=== PATIENT | female | born 2000 ===

== ENCOUNTER 2023-03-11 07:25 | Inpatient (IN) | payer MEDICARE, OTHER ==
[~2023-03-11] VITALS: Ht 170.2 cm; Wt 95.1 kg
[2023-03-11] VITALS (11 sets, daily range): BP systolic 105–136; BP diastolic 59–84
[2023-03-11] MEDS ORDERED: PRENTAB9 PO (07:51)
[2023-03-11] MEDS ORDERED: HOME MED LIST COMPLETE! XX SCH (07:55)
[2023-03-11] MEDS ORDERED: CARBOPROST TROMETHAMINE 250 MCG/ML AMP IM PRN (08:00)
[2023-03-11] MEDS ORDERED: OXYTOCIN INJ 10UNITS/ML 1ML VIAL IV PRN (08:00)
[2023-03-11] MEDS ORDERED: TRANEXAMIC ACID INJection 1,000 MG in NS 100 ML IV PRN (08:00)
[2023-03-11] MEDS ORDERED: METHYLERGONOVINE MALEATE 0.2MG/ML 1ML VIAL IM PRN (08:00)
[2023-03-11] MEDS ORDERED: OXYTOCIN DRIP 30 UNITS in IV 1 EA IV PRN ×6 (08:00)
[2023-03-11] MEDS ORDERED: LIDOCAINE 1% MDV 20ML VIAL INFIL PRN (08:00)
[2023-03-11] MEDS ORDERED: OXYTOCIN INJ 10UNITS/ML 1ML VIAL IM PRN (08:00)
[2023-03-11] MEDS: LR 1,000 ML IV SCH ×2 (09:14→17:16)
[2023-03-11 09:23] LABS: HEMATOCRIT 35.1 % (36.0-47.0); HEMOGLOBIN 11.7 g/dl (12.0-15.5); MEAN CORPUSCULAR HEMOGLOBIN 31.2 pg (27.0-33.0); MEAN CORPUSCULAR HGB CONC 33.3 g/dl (32.0-36.5); MEAN CORPUSCULAR VOLUME 93.6 fl (80.0-96.0); PLATELET COUNT, AUTOMATED 169 10^3/uL (150-450); RED BLOOD COUNT 3.75 10^6/uL (4.00-5.40); WHITE BLOOD COUNT 5.4 10^3/uL (4.0-10.0)
[2023-03-11] MEDS ORDERED: miSOPROStol 25MCG 1/4 TABLET PO SCH (09:30)
[2023-03-11] MEDS: AMPICILLIN SOD 2 GM in D5W MINI-BAG PLUS 100 ML IV SCH ×3 (09:37→20:54)
[2023-03-11] MEDS: miSOPROStol 50MCG 1/2 TABLET PO SCH ×3 (13:19→20:54)
[2023-03-11 14:29] LABS: GC DNA AMPLIFICATION NEGATIVE (NEGATIVE)
[2023-03-12] MEDS: AMPICILLIN SOD 2 GM in D5W MINI-BAG PLUS 100 ML IV SCH (03:17)
[2023-03-12] MEDS ORDERED: PRENTAB9 PO (06:35)
== END 2023-03-12 06:45 | disposition home or self-care (01) | DRG 951 ==
LOC: M LDI 07:35
PROVIDERS: ADMIT Obstetrics & Gynecology Obstetrics; ATTEND Obstetrics & Gynecology Obstetrics
PROC: 3E0P7GC Introduction of Other Therapeutic Substance into Female Reproductive, Via Natural or Artificial Opening (ICD-10-PCS; principal; 2023-03-11)
DX: O48.0 Post-term pregnancy (principal); O99.820 Streptococcus B carrier state complicating pregnancy; Z3A.40 40 weeks gestation of pregnancy; O61.0 Failed medical induction of labor

== ENCOUNTER 2023-03-14 12:45 | Inpatient (IN) | payer OTHER ==
[~2023-03-14] VITALS: Ht 170.2 cm; Wt 96.0 kg
[2023-03-14] VITALS (10 sets, daily range): BP systolic 124–173; BP diastolic 58–101
[~2023-03-14 12:45] MED LIST: PRENTAB9 PO
[2023-03-14] MEDS ORDERED: OXYTOCIN INJ 10UNITS/ML 1ML VIAL IM PRN (13:45)
[2023-03-14] MEDS ORDERED: TRANEXAMIC ACID INJection 1,000 MG in NS 100 ML IV PRN (13:45)
[2023-03-14] MEDS ORDERED: LIDOCAINE 1% MDV 20ML VIAL INFIL PRN (13:45)
[2023-03-14] MEDS ORDERED: METHYLERGONOVINE MALEATE 0.2MG/ML 1ML VIAL IM PRN (13:45)
[2023-03-14] MEDS ORDERED: CARBOPROST TROMETHAMINE 250 MCG/ML AMP IM PRN (13:45)
[2023-03-14] MEDS ORDERED: OXYTOCIN DRIP 30 UNITS in IV 1 EA IV PRN ×6 (13:45)
[2023-03-14] MEDS ORDERED: OXYTOCIN INJ 10UNITS/ML 1ML VIAL IV PRN (13:45)
[2023-03-14] MEDS ORDERED: miSOPROStol 50MCG 1/2 TABLET PV ONE ×3 (13:45→21:50)
[2023-03-14 14:34] LABS: HEMOGLOBIN 12.1 g/dl (12.0-15.5); MEAN CORPUSCULAR HEMOGLOBIN 31.4 pg (27.0-33.0); MEAN CORPUSCULAR HGB CONC 33.6 g/dl (32.0-36.5); MEAN CORPUSCULAR VOLUME 93.5 fl (80.0-96.0); PLATELET COUNT, AUTOMATED 167 10^3/uL (150-450); RED BLOOD COUNT 3.85 10^6/uL (4.00-5.40); WHITE BLOOD COUNT 6.4 10^3/uL (4.0-10.0)
[2023-03-14] MEDS ORDERED: AMPICILLIN SOD 2 GM in D5W MINI-BAG PLUS 100 ML IV SCH (15:00)
[2023-03-14 21:31] LABS: ALBUMIN 2.8 G/DL (3.2-5.2); ALKALINE PHOSPHATASE 172 U/L (46-116); ALT/SGPT 14 U/L (7.0-40); AST/SGOT 19 U/L (<34); BILIRUBIN,TOTAL 0.3 MG/DL (0.3-1.2); BLOOD UREA NITROGEN 8 MG/DL (9-23); CALCIUM LEVEL 8.2 MG/DL (8.5-10.1); CARBON DIOXIDE LEVEL 21 MMOL/L (20-31); CHLORIDE LEVEL 107 MMOL/L (98-107); CREATININE FOR GFR 0.49 MG/DL (0.55-1.30); GLOMERULAR FILTRATION RATE > 60.0 (>60); GLUCOSE, FASTING 122 MG/DL (60-100); POTASSIUM SERUM 3.6 MMOL/L (3.5-5.1); SODIUM LEVEL 139 MMOL/L (136-145); TOTAL PROTEIN 6.2 G/DL (5.7-8.2)
[2023-03-14 21:39] LABS: TOTAL PROTEIN,RANDOM URINE 10.7 MG/DL (0.0-14.0)
[2023-03-14 21:44] LABS: CREATININE,RANDOM URINE 78.4 MG/DL
[2023-03-15] VITALS (10 sets, daily range): BP systolic 111–138; BP diastolic 65–93
[2023-03-15] MEDS ORDERED: OXYTOCIN 30UNITS IN 0.9% NaCl 500ML IV BAG As Ordered ONE (06:46)
[2023-03-15] MEDS ORDERED: ACETAMINOPHEN TAB 650MG DOSE (2X325MG) PO PRN (07:20)
[2023-03-15] MEDS ORDERED: METHYLERGONOVINE MALEATE 0.2 MG TAB PO PRN (07:20)
[2023-03-15] MEDS ORDERED: OXYTOCIN DRIP 30 UNITS in IV 1 EA IV SCH (07:20)
[2023-03-15] MEDS ORDERED: IBUPROFEN 600MG TAB PO PRN (07:20)
[2023-03-15] MEDS ORDERED: DIBUCAINE 1% OINTMENT 30GM TOP PRN (07:20)
[2023-03-15] MEDS ORDERED: IBUPROFEN 800 MG TAB PO PRN (07:20)
[2023-03-15] MEDS ORDERED: DOCUSATE SODIUM 100MG CAPSULE PO PRN (07:20)
[2023-03-15] MEDS ORDERED: ACETAMINOPHEN 500 MG TAB PO PRN (07:20)
[2023-03-15] MEDS ORDERED: SLF 3 ML SYR IV PRN (09:25)
[2023-03-15] MEDS: PRENATAL VITAMINS CHEWABLE TABLET PO SCH (10:07)
[2023-03-15] MEDS: SLF 3 ML SYR IV SCH ×2 (14:00→22:00)
[2023-03-16 06:00] VITALS: BP 135/79
[2023-03-16] MEDS: SLF 3 ML SYR IV SCH (06:00)
[2023-03-16] MEDS ORDERED: ACET1TAB55 PO (06:48)
[2023-03-16] MEDS ORDERED: IBUP-1022 PO (06:48)
[2023-03-16 07:48] LABS: HEMATOCRIT 35.3 % (36.0-47.0); HEMOGLOBIN 11.8 g/dl (12.0-15.5); MEAN CORPUSCULAR HEMOGLOBIN 31.5 pg (27.0-33.0); MEAN CORPUSCULAR HGB CONC 33.4 g/dl (32.0-36.5); MEAN CORPUSCULAR VOLUME 94.1 fl (80.0-96.0); PLATELET COUNT, AUTOMATED 155 10^3/uL (150-450); RED BLOOD COUNT 3.75 10^6/uL (4.00-5.40); WHITE BLOOD COUNT 8.5 10^3/uL (4.0-10.0)
[2023-03-16] MEDS: PRENATAL VITAMINS CHEWABLE TABLET PO SCH (08:08)
== END 2023-03-16 20:05 | disposition home or self-care (01) | DRG 560 ==
LOC: M LDI 12:45 → M OBS 03-15 11:40
PROVIDERS: ADMIT Obstetrics & Gynecology Obstetrics; ATTEND Obstetrics & Gynecology Obstetrics
PROC: 3E0P7GC Introduction of Other Therapeutic Substance into Female Reproductive, Via Natural or Artificial Opening (ICD-10-PCS; 2023-03-14)
PROC: 10E0XZZ Delivery of Products of Conception, External Approach (ICD-10-PCS; principal; 2023-03-15)
PROC: 10907ZC Drainage of Amniotic Fluid, Therapeutic from Products of Conception, Via Natural or Artificial Opening (ICD-10-PCS; 2023-03-15)
DX: O48.0 Post-term pregnancy (principal); O99.824 Streptococcus B carrier state complicating childbirth; Z3A.41 41 weeks gestation of pregnancy; O69.81X0 Labor and delivery complicated by cord around neck, without compression, not applicable or unspecified; O66.0 Obstructed labor due to shoulder dystocia; Z37.0 Single live birth